=== PATIENT | female | born 1930 | race Caucasian/White ===

== ENCOUNTER 2017-08-05 14:08 | Inpatient (IN) | payer MEDICARE ==
[2017-08-05] MEDS ORDERED: IPRATROPIUM-ALBUTEROL 3 ML NEB INHALATION STA (14:55)
[2017-08-05] MEDS ORDERED: ACETAMINOPHEN TAB 500 MG TAB PO STA (14:55)
--- NOTE | 2017-08-05 15:03 | ED ---
General Adult HPI - General Chief complaint: Chest Pain Stated complaint: fever Time Seen by Provider: 08/05/17 14:21 Source: patient, EMS Mode of arrival: EMS Limitations: no limitations - History of Present Illness Initial comments: 87-year-old female history of hypertension diabetes presenting with cough and chest pain. Patient has had fever and chills. She has had a cough which is wet sounding but nonproductive. Chest pain is central, stable, with no radiation and worse with cough. Patient denies lower extremity pain or swelling. Denies nausea or vomiting. She has had a mild sore throat. Her daughter who lives with her has had flulike symptoms over the past several days in her is currently admitted with pneumonia. - Related Data Home Medications Medication Instructions Recorded Confirmed Aspirin 81 mg PO DAILY 02/05/16 08/05/17 Bimatoprost [Lumigan .01% Ophth 1 drop BOTH EYES HS 02/05/16 08/05/17 Soln] Cholecalciferol [Vitamin D3] 1,000 unit PO DAILY 02/05/16 08/05/17 Furosemide 20 mg PO MOWEFR 02/05/16 08/05/17 Glimepiride 0.5 mg PO DAILY 02/05/16 08/05/17 L.acidoph,Paracasei, B.lactis 1 cap PO DAILY 02/05/16 08/05/17 [Probiotic] Levothyroxine Sodium [Synthroid] 25 mcg PO SUTUTHSA 02/05/16 08/05/17 Levothyroxine Sodium [Synthroid] 50 mcg PO MOWEFR 02/05/16 08/05/17 Lisinopril [Zestril] 20 mg PO DAILY 02/05/16 08/05/17 Metoprolol Succinate [Toprol XL] 25 mg PO DAILY 02/05/16 08/05/17 Multivit-Min/Iron/Folic/Lutein 1 tab PO DAILY 02/05/16 08/05/17 [Centrum Silver Women Tablet] [place]-3 Fatty Acids/Fish Oil [Fish 1 cap PO DAILY 02/05/16 08/05/17 Oil 1,000 mg Softgel] Pravastatin Sodium 40 mg PO HS 02/05/16 08/05/17 Repaglinide [Prandin] 0.5 mg PO QAM 02/05/16 08/05/17 sitaGLIPtin [Januvia] 25 mg PO DAILY 02/05/16 08/05/17 Brinzolamide [Azopt 1% Ophth Susp] 1 drop BOTH EYES BID 08/05/17 08/05/17 Allergies Allergy/AdvReac Type Severity Reaction Status Date / Time No Known Allergies Allergy Verified 08/05/17 15:07 Review of Systems ROS Statement: Those systems with pertinent positive or pertinent negative responses have been documented in the HPI. ROS Other: All systems not noted in ROS Statement are negative. Past Medical History Past Medical History: Chest Pain / Angina, Diabetes Mellitus, Hyperlipidemia, Hypertension, Renal Disease, Thyroid Disorder Additional Past Medical History / Comment(s): Heaviness of chest radiating to back,SOB,Irreg HR, hx of shingle to left side below breast around to back approx 6 yrs ago-still has intermittent pain. History of Any Multi-Drug Resistant Organisms: None Reported Past Surgical History: Cholecystectomy, Hysterectomy, Joint Replacement Additional Past Surgical History / Comment(s): cystocele,rectocele,rt hip replaced,kerry cataracts Past Anesthesia/Blood Transfusion Reactions: Motion Sickness Past Psychological History: No Psychological Hx Reported Smoking Status: Never smoker Past Alcohol Use History: None Reported Past Drug Use History: None Reported - Past Family History Mother Family Medical History: No Reported History Father Family Medical History: Cancer General Exam Limitations: no limitations General appearance: alert, in no apparent distress Head exam: Present: atraumatic, normocephalic Eye exam: Present: normal appearance, PERRL, EOMI ENT exam: Present: normal exam Neck exam: Present: normal inspection. Absent: tenderness, meningismus Respiratory exam: Present: wheezes (Wheezing in the right mid lung field). Absent: respiratory distress Cardiovascular Exam: Present: regular rate, normal rhythm GI/Abdominal exam: Present: soft. Absent: distended, tenderness Extremities exam: Present: normal inspection, normal capillary refill. Absent: pedal edema Back exam: Present: normal inspection Neurological exam: Present: alert, oriented X3. Absent: motor sensory deficit Psychiatric exam: Present: normal affect, normal mood Skin exam: Present: warm, dry, intact. Absent: cyanosis, diaphoretic Course Vital Signs 08/05/17 08/05/17 08/05/17 14:34 15:14 15:22 Temperature 101.3 F H Pulse Rate 96 86 86 Pulse Rate [ Screw Machine Set Up Operator ] Respiratory 18 Rate Blood Pressure 176/84 O2 Sat by Pulse 97 Oximetry 08/05/17 08/05/17 16:31 16:53 Temperature 99.1 F Pulse Rate 95 Pulse Rate [ 80 Screw Machine Set Up Operator ] Respiratory 18 Rate Blood Pressure 110/58 O2 Sat by Pulse 97 Oximetry EKG Findings - EKG Comments: EKG Findings:: EKG, sinus rhythm with PAC, left anterior fascicular block, age undetermined anterior infarct, rate of 95, VT interval 162, QRS duration 72, QTC 442, no ST segment elevation Medical Decision Making - Medical Decision Making 87-year-old female presenting with cough, chest pain, and dyspnea. She is febrile. Family members that had flulike symptoms and her is admitted with pneumonia. Patient has focal wheezing on exam. Chest x-ray is negative for focal pneumonia. White blood cell count 9.9, hemoglobin 10.9, creatinine 1.5 with no known baseline. BNP is elevated 1600. Urinalysis pending. Patient 's symptoms and exam concerning with clinical pneumonia. Family is very uncomfortable with discharge at this point. Patient will be admitted for IV antibiotics and reevaluation. - Lab Data Result diagrams: 08/05/17 14:50 08/05/17 14:50 Lab Results 08/05/17 08/05/17 08/05/17 Range/Units 14:50 14:50 14:50 WBC 9.9 (3.8-10.6) k/uL RBC 3.47 L (3.80-5.40) m/uL Hgb 10.9 L (11.4-16.0) gm/dL Hct 33.7 L (34.0-46.0) % MCV 97.0 (80.0-100.0) fL MCH 31.5 (25.0-35.0) pg MCHC 32.4 (31.0-37.0) g/dL RDW 13.1 (11.5-15.5) % Plt Count 265 (150-450) k/uL Neutrophils % 81 % Lymphocytes % 13 % Monocytes % 4 % Eosinophils % 1 % Basophils % 0 % Neutrophils # 8.1 H (1.3-7.7) k/uL Lymphocytes # 1.3 (1.0-4.8) k/uL Monocytes # 0.4 (0-1.0) k/uL Eosinophils # 0.1 (0-0.7) k/uL Basophils # 0.0 (0-0.2) k/uL PT (9.0-12.0) sec INR (<1.2) APTT (22.0-30.0) sec Sodium 141 (137-145) mmol/L Potassium 4.2 (3.5-5.1) mmol/L Chloride 106 (98-107) mmol/L Carbon Dioxide 21 L (22-30) mmol/L Anion Gap 14 mmol/L BUN 27 H (7-17) mg/dL Creatinine 1.50 H (0.52-1.04) mg/dL Est GFR (CKD-EPI)AfAm 35 (>60 ml/min/1.73 sqM) Est GFR (CKD-EPI)NonAf 31 (>60 ml/min/1.73 sqM) Glucose 103 H (74-99) mg/dL Plasma Lactic Acid Gary (0.7-2.0) mmol/L Calcium 9.3 (8.4-10.2) mg/dL Magnesium 2.0 (1.6-2.3) mg/dL Total Bilirubin 0.4 (0.2-1.3) mg/dL AST 25 (14-36) U/L ALT 19 (9-52) U/L Alkaline Phosphatase 57 (38-126) U/L Total Creatine Kinase 56 (30-135) U/L CK-MB (CK-2) 0.8 (0.0-2.4) ng/mL CK-MB (CK-2) Rel Index 1.4 Troponin I 0.021 (0.000-0.034) ng/mL NT-Pro-B Natriuret Pep pg/mL Total Protein 6.2 L (6.3-8.2) g/dL Albumin 3.6 (3.5-5.0) g/dL Amylase 48 (30-110) U/L Lipase 112 (23-300) U/L Influenza Type A RNA (Not Detectd) Influenza Type B (PCR) (Not Detectd) 08/05/17 08/05/17 08/05/17 Range/Units 14:50 14:50 14:50 WBC (3.8-10.6) k/uL RBC (3.80-5.40) m/uL Hgb (11.4-16.0) gm/dL Hct (34.0-46.0) % MCV (80.0-100.0) fL MCH (25.0-35.0) pg MCHC (31.0-37.0) g/dL RDW (11.5-15.5) % Plt Count (150-450) k/uL Neutrophils % % Lymphocytes % % Monocytes % % Eosinophils % % Basophils % % Neutrophils # (1.3-7.7) k/uL Lymphocytes # (1.0-4.8) k/uL Monocytes # (0-1.0) k/uL Eosinophils # (0-0.7) k/uL Basophils # (0-0.2) k/uL PT (9.0-12.0) sec INR (<1.2) APTT (22.0-30.0) sec Sodium (137-145) mmol/L Potassium (3.5-5.1) mmol/L Chloride (98-107) mmol/L Carbon Dioxide (22-30) mmol/L Anion Gap mmol/L BUN (7-17) mg/dL Creatinine (0.52-1.04) mg/dL Est GFR (CKD-EPI)AfAm (>60 ml/min/1.73 sqM) Est GFR (CKD-EPI)NonAf (>60 ml/min/1.73 sqM) Glucose (74-99) mg/dL Plasma Lactic Acid Gary 1.0 (0.7-2.0) mmol/L Calcium (8.4-10.2) mg/dL Magnesium (1.6-2.3) mg/dL Total Bilirubin (0.2-1.3) mg/dL AST (14-36) U/L ALT (9-52) U/L Alkaline Phosphatase (38-126) U/L Total Creatine Kinase (30-135) U/L CK-MB (CK-2) (0.0-2.4) ng/mL CK-MB (CK-2) Rel Index Troponin I (0.000-0.034) ng/mL NT-Pro-B Natriuret Pep 1630 pg/mL Total Protein (6.3-8.2) g/dL Albumin (3.5-5.0) g/dL Amylase (30-110) U/L Lipase (23-300) U/L Influenza Type A RNA Not Detected (Not Detectd) Influenza Type B (PCR) Not Detected (Not Detectd) 08/05/17 Range/Units 14:50 WBC (3.8-10.6) k/uL RBC (3.80-5.40) m/uL Hgb (11.4-16.0) gm/dL Hct (34.0-46.0) % MCV (80.0-100.0) fL MCH (25.0-35.0) pg MCHC (31.0-37.0) g/dL RDW (11.5-15.5) % Plt Count (150-450) k/uL Neutrophils % % Lymphocytes % % Monocytes % % Eosinophils % % Basophils % % Neutrophils # (1.3-7.7) k/uL Lymphocytes # (1.0-4.8) k/uL Monocytes # (0-1.0) k/uL Eosinophils # (0-0.7) k/uL Basophils # (0-0.2) k/uL PT 10.5 (9.0-12.0) sec INR 1.1 (<1.2) APTT 22.9 (22.0-30.0) sec Sodium (137-145) mmol/L Potassium (3.5-5.1) mmol/L Chloride (98-107) mmol/L Carbon Dioxide (22-30) mmol/L Anion Gap mmol/L BUN (7-17) mg/dL Creatinine (0.52-1.04) mg/dL Est GFR (CKD-EPI)AfAm (>60 ml/min/1.73 sqM) Est GFR (CKD-EPI)NonAf (>60 ml/min/1.73 sqM) Glucose (74-99) mg/dL Plasma Lactic Acid Gary (0.7-2.0) mmol/L Calcium (8.4-10.2) mg/dL Magnesium (1.6-2.3) mg/dL Total Bilirubin (0.2-1.3) mg/dL AST (14-36) U/L ALT (9-52) U/L Alkaline Phosphatase (38-126) U/L Total Creatine Kinase (30-135) U/L CK-MB (CK-2) (0.0-2.4) ng/mL CK-MB (CK-2) Rel Index Troponin I (0.000-0.034) ng/mL NT-Pro-B Natriuret Pep pg/mL Total Protein (6.3-8.2) g/dL Albumin (3.5-5.0) g/dL Amylase (30-110) U/L Lipase (23-300) U/L Influenza Type A RNA (Not Detectd) Influenza Type B (PCR) (Not Detectd) Disposition Clinical Impression: Community acquired pneumonia Disposition: ADMITTED IP TO THIS HOSP Condition: Stable Is patient prescribed a controlled substance at d/c from ED?: No Referrals: Jose Major DO [Primary Care Provider] - 1-2 days Decision to Admit Reason: Admit from EC Decision Date: 08/05/17 Decision Time: 17:06
[2017-08-05 15:06] LABS: Basophils % (A) 0 %; Eosinophils # (A) 0.1 k/uL (0-0.7); Eosinophils % (A) 1 %; HCT 33.7 % (34.0-46.0); HGB 10.9 gm/dL (11.4-16.0); Lymphocytes # (A) 1.3 k/uL (1.0-4.8); Lymphocytes % (A) 13 %; MCH 31.5 pg (25.0-35.0); MCHC 32.4 g/dL (31.0-37.0); Mean Platelet Volume 7.1; Monocytes # (A) 0.4 k/uL (0-1.0); Monocytes % (A) 4 %; Neutrophils # (A) 8.1 k/uL (1.3-7.7); Neutrophils % (A) 81 %; Platelet Count 265 k/uL (150-450); RBC 3.47 m/uL (3.80-5.40); RDW 13.1 % (11.5-15.5); WBC 9.9 k/uL (3.8-10.6)
[2017-08-05 15:16] LABS: INR 1.1 (<1.2); Partial Thromboplastin Time 22.9 sec (22.0-30.0); Prothrombin Time 10.5 sec (9.0-12.0)
[2017-08-05 15:17] LABS: Albumin 3.6 g/dL (3.5-5.0); Calcium 9.3 mg/dL (8.4-10.2); Potassium 4.2 mmol/L (3.5-5.1); Total Bilirubin 0.4 mg/dL (0.2-1.3); Total Protein 6.2 g/dL (6.3-8.2)
[2017-08-05 15:37] LABS: Creatine Kinase MB 0.8 ng/mL (0.0-2.4); Troponin I 0.021 ng/mL (0.000-0.034)
--- NOTE | 2017-08-05 15:42 | XR ---
EXAMINATION TYPE: XR chest 2V DATE OF EXAM: 08/05/2017 COMPARISON: NONE TECHNIQUE: PA and lateral views submitted. HISTORY: Cough and congestion FINDINGS: The lungs are clear and there is no pneumothorax, pleural effusion, or focal pneumonia. Heart size is prominent. Diffuse osteopenia and arthropathy of the shoulders. Atherosclerotic change aorta. Inflation of the lungs. Degenerative and hypertrophic change of the spine. Ossification or calcificat ion within the axilla bilaterally. IMPRESSION: 1. No acute process. Correlate for COPD.
[2017-08-05] MEDS ORDERED: cefTRIAXone IN SWFI 1,000 MG/10 ML SYRINGE IVP STA (16:32)
[2017-08-05] MEDS ORDERED: AZITHROMYCIN 500 MG in SODIUM CHLORIDE 0.9% 250 ML IVPB STA (16:34)
[2017-08-05] MEDS ORDERED: FUROSEMIDE 10 MG/ML 2 ML VIAL IV ONE (16:41)
[2017-08-05] MEDS ORDERED: NALOXONE 0.4 MG/ML 1 ML VIAL IV PRN (17:06)
[2017-08-05 17:35] LABS: Appearance,Urine Cloudy (Clear); Bacteria,Urine Many /hpf; Bilirubin,Urine Negative (Negative); Blood,Urine Trace (Negative); Color,Urine Light Yellow; Glucose,Urine (UA) Negative (Negative); Ketones,Urine Negative (Negative); Leukocyte Esterase,Urine Large (Negative); Nitrite,Urine Positive (Negative); Protein,Urine Trace (Negative); RBC,Urine 3 /hpf (0-5); Squamous Epithelial Cell,Urine 12 /hpf (0-4); Urobilinogen,Urine <2.0 mg/dL (<2.0); WBC,Urine 54 /hpf (0-5)
[2017-08-05] MEDS ORDERED: ACETAMINOPHEN TAB 500 MG TAB PO PRN (18:55)
[2017-08-05 19:39] LABS: Glucose,Whole Blood 88 mg/dL (75-99)
[2017-08-05] MEDS: LEVOTHYROXINE 25 MCG TAB PO SCH (19:47)
[2017-08-05] MEDS: DORZOLAMIDE HCL 2% DROPS 10 ML BTL BOTH EYES SCH (19:47)
[2017-08-05] MEDS: LATANOPROST 0.005% OPHTH DROPS 2.5 ML BTL BOTH EYES SCH (19:48)
[2017-08-05 19:58] VITALS: BMI 17.9
[2017-08-05] MEDS: PRAVASTATIN SODIUM 40 MG TAB PO SCH (20:01)
[2017-08-05] MEDS: INSULIN ASPART 100 UNIT/ML 1 ML 10 ML VIAL SQ SCH (21:06)
[2017-08-05] MEDS ORDERED: ONDANSETRON 4 MG/2 ML VIAL IVP PRN (21:11)
[2017-08-05] MEDS ORDERED: CALCIUM CARBONATE 500 MG CHEWABLE PO PRN (21:11)
[2017-08-05] MEDS ORDERED: ACETAMINOPHEN TAB 325 MG TAB PO PRN (21:11)
[2017-08-05] MEDS ORDERED: MELATONIN 3 MG TABLET PO PRN (21:11)
[2017-08-05] MEDS ORDERED: ALPRAZolam 0.25 MG TAB PO PRN (21:11)
--- NOTE | 2017-08-05 22:38 | HP ---
HISTORY AND PHYSICAL DATE OF SERVICE: August 05, 2017. PRESENTING COMPLAINT: Cough. HISTORY OF PRESENTING COMPLAINT: A very pleasant 87-year-old patient of Dr. Major, chronic stable medical conditions include diabetes, hypertension, hyperlipidemia, hypothyroidism. The patient, last night, started coughing rather severely and with coughing she was having some lower sternal pain every time she coughed. Short of breath. Had a fever up to 101 documented in the ER. Decreased appetite, tired, run down, not able to bring up much sputum. Pretty much dry cough, feeling tired and run down. The patient was admitted for the same. The patient's is also admitted to the hospital, in fact is her roommate right now. REVIEW OF SYSTEMS: CONSTITUTIONAL: Tired, decreased appetite. HEENT: Decreased hearing. RESPIRATORY: As above. CARDIOVASCULAR: No precordial pain. GASTROINTESTINAL: None. GENITOURINARY: None. MUSCULOSKELETAL: Some arthritic pain in the joints. DERMATOLOGIC: None. HEMATOLOGIC: None. LYMPHATIC: None. PSYCHIATRY: None. NEUROLOGICAL: Uses a cane. PAST MEDICAL HISTORY: Diabetes, hypertension, hyperlipidemia, hypothyroidism, herpes zoster/shingles. PAST SURGICAL HISTORY: Cholecystectomy, hysterectomy, joint replacement, cystocele, rectocele, right hip replaced, bilateral cataract. SOCIAL HISTORY: Does not smoke or drink alcohol. . FAMILY HISTORY: Reviewed, noncontributory to presentation. HOME MEDICATIONS: 1. Pravastatin 40 mg at bedtime. 2. Synthroid 50 mcg Wednesday, Wednesday and Wednesday. 3. Lasix 20 mg Wednesday, Wednesday and Wednesday. 4. Lumigan 0.01% 1 drop to both eyes at bedtime. 5. Fish oil 1000 mg 1 capsule p.o. daily. 6. Centrum Silver 1 tab p.o. daily. 7. Azopt 1 drop to both eyes b.i.d. 8. Januvia 25 mg a day. 9. Prandin 0.5 mg p.o. daily. 10.Probiotic 1 capsule p.o. daily. 11.Glyburide 0.5 mg p.o. daily. 12.Vitamin D3, 1000 units p.o. daily. 13.Aspirin 81 mg p.o. daily. 14.Toprol-XL 25 mg p.o. daily. 15.Zestril 20 mg p.o. daily. 16.Synthroid 25 mcg on Wednesday, Wednesday, , Wednesday. ALLERGIES: None. PHYSICAL EXAMINATION: Vital signs on presentation, temperature 101.3, pulse 96, respirations 18, blood pressure 176-84 pulse ox 97% on room air. GENERAL APPEARANCE: Thin built, lying in bed, tired appearing. EYES: Pupils are equal. Conjunctivae normal. HEENT: External nose and ears normal. Oral cavity normal. NECK: JVD not raised. Mass not palpable. Respiratory effort normal. LUNGS: Decreased breath sounds. CARDIOVASCULAR: 1st and 2nd heart sounds. No edema. ABDOMEN: Soft nontender. Liver and spleen not palpable. LYMPHATIC: No lymph nodes palpable in neck or axillae. PSYCHIATRY: Alert, oriented x3. Mood normal. 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 NEUROLOGIC: Pupils equal. Cranial nerves grossly intact. Power and sensation grossly intact. INVESTIGATIONS: White count 9.9, hemoglobin 10.9, potassium 4.2, BUN 27, creatinine 1.5. UA positive leuko esterase, WBC 54, squamous epithelial cells 12. Chest x-ray reviewed by me shows possible right middle lobe infiltrate. ASSESSMENT: 1. Right middle lobe pneumonia, suspect gram-negative organism, present on admission. 2. Asymptomatic bacteriuria. 3. Renal failure, acute versus chronic. The patient is on Lasix. 4. Normocytic anemia. 5. Diabetes mellitus type 2, on oral hypoglycemic. 6. Hyperlipidemia. 7. Essential hypertension. 8. Hypothyroidism. PLAN: Patient is started on IV ceftriaxone and Zithromax. Home medications are resumed. We will order a 2-D echocardiogram. Give IV fluids. Hold off patient's diuretics for right now. Care was discussed with the patient. Questions were answered. MMODL / IJN: [id number] /
[2017-08-06] MEDS: LACTATED RINGERS 1,000 ML IV SCH ×3 (06:00→22:00)
[2017-08-06] MEDS ORDERED: LEVOTHYROXINE 50 MCG TAB PO SCH (06:30)
[2017-08-06 06:58] LABS: Glucose,Whole Blood 116 mg/dL (75-99)
[2017-08-06] MEDS ORDERED: REPAGLINIDE 1 MG TAB PO SCH (07:30)
[2017-08-06 07:34] LABS: Basophils % (A) 0 %; Eosinophils % (A) 0 %; HCT 31.7 % (34.0-46.0); HGB 10.5 gm/dL (11.4-16.0); Lymphocytes # (A) 1.3 k/uL (1.0-4.8); Lymphocytes % (A) 14 %; MCH 32.1 pg (25.0-35.0); MCHC 33.1 g/dL (31.0-37.0); MCV 96.9 fL (80.0-100.0); Mean Platelet Volume 7.2; Monocytes # (A) 0.4 k/uL (0-1.0); Monocytes % (A) 4 %; Neutrophils # (A) 7.7 k/uL (1.3-7.7); Neutrophils % (A) 80 %; Platelet Count 251 k/uL (150-450); RBC 3.27 m/uL (3.80-5.40); RDW 13.1 % (11.5-15.5); WBC 9.6 k/uL (3.8-10.6)
[2017-08-06] MEDS: INSULIN ASPART 100 UNIT/ML 1 ML 10 ML VIAL SQ SCH ×4 (07:34→20:04)
[2017-08-06 07:43] LABS: Calcium 9.1 mg/dL (8.4-10.2); Potassium 3.9 mmol/L (3.5-5.1)
[2017-08-06] MEDS: ASPIRIN 81 MG PO SCH (08:32)
[2017-08-06] MEDS: LISINOPRIL 20 MG TAB PO SCH (08:32)
[2017-08-06] MEDS: DORZOLAMIDE HCL 2% DROPS 10 ML BTL BOTH EYES SCH ×2 (08:32→20:06)
[2017-08-06] MEDS: LINAGLIPTIN 5 MG TABLET PO SCH (08:33)
[2017-08-06] MEDS: METOPROLOL SUCCINATE (ER) 25 MG TAB.ER.24H PO SCH (08:33)
[2017-08-06] MEDS ORDERED: cefTRIAXone IN SWFI 1,000 MG/10 ML SYRINGE IVP SCH (09:00)
[2017-08-06] MEDS ORDERED: ENOXAPARIN 40 MG/0.4 ML SYRINGE SQ SCH (09:00)
[2017-08-06] MEDS ORDERED: FUROSEMIDE 20 MG TAB PO SCH (09:00)
[2017-08-06] MEDS ORDERED: GLIMEPIRIDE 0.5 MG TAB PO SCH (09:00)
--- NOTE | 2017-08-06 10:53 | ECHOF ---
Referral Reason:assess LV function MEASUREMENTS -------- HEIGHT: 175.3 cm WEIGHT: 54.9 kg BP: 119/78 RVIDd: 2.1 cm (< 3.3) IVSd: 0.8 cm (0.6 - 1.1) LVIDd: 2.8 cm (3.9 - 5.3) LVPWd: 1.5 cm (0.6 - 1.1) IVSs: 1.1 cm LVIDs: 2.5 cm LVPWs: 1.0 cm Ao Diam: 2.2 cm (2.0 - 3.7) AV Cusp: 1.6 cm (1.5 - 2.6) LA Diam: 3.4 cm (2.7 - 3.8) MV EXCURSION: 16.399 mm (> 18.000) MV EF SLOPE: 72 mm/s (70 - 150) EPSS: 0.4 cm MV E Eriberto: 0.52 m/s MV DecT: 246 ms MV A Eriberto: 0.81 m/s MV E/A Ratio: 0.65 RAP: 5.00 mmHg RVSP: 22.32 mmHg FINDINGS -------- Sinus rhythm. Pt. has a pectus chest. The left ventricular size is normal. Left ventricular wall thickness is normal. Overall left vent ricular systolic function is normal with, an EF between 55 - 60 %. The right ventricle is normal in size. The left atrial size is normal. The right atrial size is normal. The aortic valve is trileaflet, and appears structurally normal. No aortic stenosis or regurgitation. Mild mitral regurgitation is present. Mild tricuspid regurgitation present. There is no evidence of pulmonary hypertension. The right v entricular systolic pressure, as measured by Doppler, is 22.32mmHg. The pulmonic valve was not well visualized. The aortic root size is normal. There is no pericardial effusion. CONCLUSIONS -------- 1. Pt. has a pectus chest. 2. The left ventricular size is normal. 3. Left ventricular wall thickness is normal. 4. Overall left ventricular systolic function is normal with, an EF between 55 - 60 %. 5. The aortic valve is trileaflet, and appears structurally normal. No aortic stenosis or regurgitati on. 6. Mild mitral regurgitation is present. 7. Mild tricuspid regurgitation present. 8. There is no evidence of pulmonary hypertension. 9. The right ventricular systolic pressure, as measured by Doppler, is 22.32mmHg. 10. The pulmonic valve was not well visualized. 11. The aortic root size is normal. 12. There is no pericardial effusion. PORT PATROL OFFICER: Afia Pena RDCS
[2017-08-06 11:53] LABS: Glucose,Whole Blood 68 mg/dL (75-99)
[2017-08-06 12:06] LABS: Glucose,Whole Blood 75 mg/dL (75-99)
[2017-08-06] MEDS ORDERED: AZITHROMYCIN 500 MG in SODIUM CHLORIDE 0.9% 250 ML IVPB SCH (16:00)
[2017-08-06 17:21] LABS: Glucose,Whole Blood 71 mg/dL (75-99)
[2017-08-06 20:00] LABS: Glucose,Whole Blood 103 mg/dL (75-99)
[2017-08-06] MEDS: PRAVASTATIN SODIUM 40 MG TAB PO SCH (20:06)
[2017-08-06] MEDS: LATANOPROST 0.005% OPHTH DROPS 2.5 ML BTL BOTH EYES SCH (20:06)
--- NOTE | 2017-08-06 22:33 | PN ---
PROGRESS NOTE DATE OF SERVICE: August 06, 2017. PRESENTING COMPLAINT: Cough. INTERVAL HISTORY: This pleasant lady presented with pneumonia, started on antibiotics, feeling better this morning. Did tolerate some diet. Cough is better. Has been up to the bathroom. Overall feels better. REVIEW OF SYSTEMS: Done for constitutional, cardiovascular, GI, pulmonary; relevant findings as above. CURRENT MEDICATIONS: Reviewed that include p.o. Zithromax and IV Ceftriaxone. PHYSICAL EXAMINATION: Temperature 97.8, pulse 81, respirations 16, blood pressure 137/67, pulse ox 95% on room air. General appearance: Sitting up, more perky. Eyes: Pupil equal. Conjunctivae normal. HEENT: External appearance of nose and ears normal. Oral cavity normal. Neck JVD not raised. Mass not palpable. Respiratory effort lungs decreased breath sounds. Cardiovascular: First and second sounds normal. No edema. ABDOMEN: Soft, nontender. Liver and spleen not palpable. Psychiatry: Alert and oriented times three. Mood and affect is normal. INVESTIGATIONS: White count 9.6, hemoglobin 10.5, BUN 26, creatinine 1.40. Accu-Cheks noted 68, 75, 71. ASSESSMENT: 1. Right middle lobe pneumonia, suspect gram-negative organism, present on admission clinically improving. 2. Asymptomatic bacteriuria. 3. Renal failure, likely chronic. Will watch closely to rule out an acute component. 4. Normocytic anemia. 5. Diabetes mellitus type 2, uncontrolled with hypoglycemia. 6. Hyperlipidemia. 7. Essential hypertension. 8. Hypothyroidism. PLAN: Continue current medication and treatment plan the patient is overall feeling better. Encouraged to be out of bed. The patient 2D AD echocardiogram shows preserved LV function. We will check patient's electrolytes again tomorrow. Will continue to hydrate the patient. Because of hypoglycemia we will stop the patient's Amaryl. Encourage oral intake. MMODL / IJN: [id number] /
[2017-08-07 05:23] VITALS: BP 159/88; PULSE 106; RESP 22; TEMP 97.1
[2017-08-07] MEDS: LEVOTHYROXINE 25 MCG TAB PO SCH (06:27)
[2017-08-07 07:10] LABS: Glucose,Whole Blood 107 mg/dL (75-99)
[2017-08-07] MEDS: INSULIN ASPART 100 UNIT/ML 1 ML 10 ML VIAL SQ SCH ×2 (07:41→12:57)
[2017-08-07 08:04] LABS: Calcium 8.6 mg/dL (8.4-10.2); Potassium 3.8 mmol/L (3.5-5.1)
[2017-08-07] MEDS: LINAGLIPTIN 5 MG TABLET PO SCH (08:14)
[2017-08-07] MEDS: ASPIRIN 81 MG PO SCH (08:14)
[2017-08-07] MEDS: DORZOLAMIDE HCL 2% DROPS 10 ML BTL BOTH EYES SCH (08:15)
[2017-08-07] MEDS: LISINOPRIL 20 MG TAB PO SCH (08:15)
[2017-08-07] MEDS: METOPROLOL SUCCINATE (ER) 25 MG TAB.ER.24H PO SCH (08:15)
[2017-08-07] MEDS ORDERED: ENOXAPARIN 30 MG/0.3 ML SYRINGE SQ SCH (09:00)
[2017-08-07 12:13] LABS: Glucose,Whole Blood 97 mg/dL (75-99)
[2017-08-07] MEDS ORDERED: AZITHROMYCIN 500 MG TAB PO SCH (16:00)
--- NOTE | 2017-08-15 15:49 | CDI ---
Last Revision, February 2017 Documentation Clarification Form Date: 08/15/2017 12:00:00 AM From: Jeimy Madsen; Susana Rollins Seismic Interpreter Phone: If you have a question about this query, please contact Susana Rollins Seismic Interpreter at [phone] between 8am and 5pm. Admit Date: 08/05/2017 5:07:00 PM Patient Name: Gina Maurer Visit Number: [id number] Discharge Date: 08/07/2017 ATTENTION: The Clinical Documentation Specialists (CDI) and [facility] Coding Staff appreciate your assistance in clarifying documentation. Please respond to the clarification below the line at the bottom and electronically sign. The CDI & [facility] Coding staff will review the response and follow-up if needed. Please note: Queries are made part of the Legal Health Record. If you have any questions, please contact the author of this message via ITS. Dr. Win Curiel Patient presented with gram-negative pneumonia. Acute, possibly chronic renal failure is documented. Current BUN/CR/GFR: 26, 1.40 33 Patients medications include: Lasix. IVF 75 mls/hr In order to capture the severity of condition, please clarify? Acute renal failure ruled in Acute renal failure ruled out Chronic renal failure ruled in Chronic renal failure ruled out If chronic renal failure: CKD Stage 1 (GFR > 90) CKD Stage 2 (GFR 60-89) CKD Stage 3 (GFR 30-59) CKD Stage 4 (GFR 15-29) CKD Stage 5 (GFR <15) ESRD Other, please specify Unable to determine ___ No acute renal failure CKD stage 3 from nephrosclerosis __ MTDD
--- NOTE | 2017-08-19 23:05 | DS ---
DISCHARGE SUMMARY FINAL DIAGNOSES: 1. Right pneumonia, suspect gram-negative organism. 2. Asymptomatic bacteriuria. 3. 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 4. Normocytic anemia. 5. Diabetes mellitus type 2 on oral hypoglycemic. 6. Hyperlipidemia. 7. Essential hypertension. 8. Hypothyroidism. 9. Chronic kidney disease stage 3 from probably a combination of nephrosclerosis and diabetic nephropathy. HOSPITAL COURSE: The patient presented with pneumonia with fever and cough. Doing much better by the time of discharge. The patient did have a 2-D echocardiogram that showed preserved LV function. On examination, lungs fair entry. CARDIOVASCULAR: First and second sounds normal. The patient's BUN creatinine was 23 and 1.27 at the time of discharge. Blood cultures were negative. DISCHARGE MEDICATIONS: 1. Aspirin 81 mg daily. 2. Lumigan 0.01% 1 drop to both eyes q.h.s. 3. Probiotic 1 capsule p.o. daily. 4. Synthroid 25 mcg on Wednesday, Wednesday, , Wednesday and 50 mcg Wednesday, Wednesday, Wednesday. 5. Zestril 20 mg p.o. daily. 6. Toprol-XL 25 mg p.o. daily. 7. Centrum Silver 1 tablet p.o. daily. 8. Fish oil 1 capsule p.o. daily. 9. Pravastatin 40 mg q.h.s. 10.Januvia 25 mg p.o. daily. 11.Azopt 1% 1 drop to both eyes b.i.d. 12.Zithromax 500 mg p.o. daily [address] Major in 3 days. MMODL / IJN: [id number] /
== END 2017-08-07 16:30 | disposition home or self-care (01) | DRG 179 ==
LOC: EC 14:08 → 5MS5E 17:07
PROVIDERS: ADMIT Hospitalist; ATTEND Hospitalist
DX: J15.6 Pneumonia due to other Gram-negative bacteria (principal); D64.9 Anemia, unspecified; E03.9 Hypothyroidism, unspecified; E11.649 Type 2 diabetes mellitus with hypoglycemia without coma; E11.22 Type 2 diabetes mellitus with diabetic chronic kidney disease; E78.5 Hyperlipidemia, unspecified; I12.9 Hypertensive chronic kidney disease with stage 1 through stage 4 chronic kidney disease, or unspecified chronic kidney disease; Z79.82 Long term (current) use of aspirin; Z79.84 Long term (current) use of oral hypoglycemic drugs; Z79.899 Other long term (current) drug therapy; Z90.710 Acquired absence of both cervix and uterus; Z79.890 Hormone replacement therapy; Z96.641 Presence of right artificial hip joint; Z98.42 Cataract extraction status, left eye; Z98.41 Cataract extraction status, right eye; N18.3 Chronic kidney disease, stage 3 (moderate); E11.21 Type 2 diabetes mellitus with diabetic nephropathy
CPT/HCPCS: 36415; 71046; 80048; 80053; 81001; 82150; 82550; 82553; 83605; 83690; 83735; 83880; 84484; 85025; 85610; 85730; 87040; 87502; 93005; 93306; 94640; 94760; 96365; 96366; 96375; 99285